=== PATIENT | female | born 1975 | race Caucasian/White ===

== ENCOUNTER → 2020-09-19 | Outpatient (CLI) | payer OTHER | END | disposition home or self-care (01) | LOC: COVID19 14:50 | PROVIDERS: ATTEND Emergency Medicine | DX: Z20.828 Contact with and (suspected) exposure to other viral communicable diseases (principal) ==

== ENCOUNTER 2024-05-15 00:54 | Emergency (ER) | payer OTHER ==
[~2024-05-15] VITALS: Ht 154.9 cm; Wt 93.0 kg
[2024-05-15] MEDS ORDERED: PRILOSEC20 M1 PO (01:12)
[2024-05-15] MEDS ORDERED: XARE20MG PO (01:12)
[2024-05-15 01:14] LABS: BASO # 0.1 10*3/uL (0.0-0.1); BASO % 0.8 % (0.0-1.0); EOS # 0.1 10*3/uL (0.0-0.4); EOS % 1.4 % (1.0-4.0); HEMATOCRIT 35.4 % (37.0-47.0); LYMPH # 1.5 10*3/uL (1.3-4.4); LYMPH % 15.7 % (27.0-41.0); MEAN CELL VOLUME 85.9 fl (81.0-99.0); MEAN CORPUSCULAR HGB 28.2 pg (27.0-31.0); MEAN CORPUSCULAR HGB CONC 32.8 g/dl (33.0-37.0); MEAN PLATELET VOLUME 8.6 fl (9.6-12.3); MONO # 0.9 10*3/uL (0.1-1.0); MONO % 9.3 % (3.0-9.0); NEUT # 6.9 10*3/uL (2.3-7.9); NEUT % 72.3 % (47.0-73.0); PLATELET COUNT AUTOMATED 307 10*3/uL (130-400); RED BLOOD COUNT 4.12 10*6/uL (4.10-5.10); RED CELL DISTRI WIDTH 13.5 % (0-14.5); WHITE BLOOD COUNT 9.6 10*3/uL (4.8-10.8)
[2024-05-15] MEDS ORDERED: VITAMIN D31250 MCG PO (01:14)
[2024-05-15] MEDS ORDERED: SERTRALINE HYDR50 MG PO (01:14)
[2024-05-15] MEDS ORDERED: LEVOXYL112 MCG PO (01:15)
[2024-05-15] MEDS ORDERED: LABETALOL HCL300 MG PO (01:17)
[2024-05-15 01:43] LABS: ALKALINE PHOSPHATASE 88 U/L (46-116); BUN 13 mg/dl (9-23); CHLORIDE 104 mmol/L (98-107); POTASSIUM 3.7 mmol/L (3.4-5.1); SGPT/ALT 12 U/L (5-49); TOTAL PROTEIN 7.3 gm/dL (6.0-8.0)
[2024-05-15] MEDS ORDERED: LEVOFLOXACIN 750 MG TAB PO ONE (04:25)
[2024-05-15] MEDS ORDERED: Ketorolac Tromethamine 30 MG/ML VIAL IV ONE (04:25)
[2024-05-15] MEDS ORDERED: LEVOFLOXACIN750 M2 PO (04:27)
== END 2024-05-15 04:53 | disposition home or self-care (01) ==
LOC: ED 00:54
PROVIDERS: Internal Medicine
DX: R07.89 Other chest pain (principal); R91.8 Other nonspecific abnormal finding of lung field; R73.9 Hyperglycemia, unspecified; Z79.899 Other long term (current) drug therapy